=== PATIENT | female | born 1965 | race Caucasian/White ===

== ENCOUNTER 2019-09-24 14:23 | Emergency (ER) | payer OTHER ==
[~2019-09-24] VITALS: Ht 149.9 cm; Wt 68.0 kg
[2019-09-24] MEDS ORDERED: ONDANSETRON 4 MG/2 ML VIAL ONE ×2 (14:40→17:22)
[2019-09-24] MEDS ORDERED: MORPHINE SULFATE 4 MG/1 ML DISP.SYRIN ONE ×2 (14:40→17:22)
[2019-09-24] MEDS ORDERED: MORPHINE SULFATE 2 MG/1 ML DISP.SYRIN IV ONE (14:45)
[2019-09-24] MEDS ORDERED: ONDANSETRON 4 MG/2 ML VIAL IV ONE ×2 (14:45→17:30)
[2019-09-24 14:57] LABS: BASOPHILS % (AUTO) 0.3 % (0.0-2.0); EOSINOPHILS # (AUTO) 0.1 K/uL (0.0-0.7); EOSINOPHILS % (AUTO) 0.9 % (0.0-7.0); HEMATOCRIT 37.1 % (31.2-41.9); HEMOGLOBIN 12.7 g/dL (10.9-14.3); LYMPHOCYTES # (AUTO) 3.2 K/uL (20.0-40.0); LYMPHOCYTES % (AUTO) 33.2 % (20.5-51.5); MEAN CORPUSCULAR HEMOGLOBIN 33.4 uug (24.7-32.8); MEAN CORPUSCULAR HGB CONC 34 g/dL (32.3-35.6); MEAN CORPUSCULAR VOLUME 97.5 fL (75.5-95.3); MONOCYTES # (AUTO) 0.5 K/uL (2.0-10.0); MONOCYTES % (AUTO) 4.7 % (0.0-11.0); NEUTROPHILS # (AUTO) 5.9 K/uL (1.8-8.9); NEUTROPHILS % (AUTO) 60.9 % (38.5-71.5); PLATELET COUNT (AUTO) 213 K/uL (179-408); RED BLOOD CELL COUNT(AUTO) 3.81 MIL/uL (3.63-4.92); WHITE BLOOD COUNT (AUTO) 9.8 K/uL (3.8-11.8)
[2019-09-24 15:03] LABS: CREATININE 0.9 mg/dL (0.6-1.3); POTASSIUM 3.9 mmol/L (3.5-5.1)
[2019-09-24 15:10] LABS: BILIRUBIN,DIRECT 0.1 mg/dL (0.0-0.2); BILIRUBIN,TOTAL 0.3 mg/dL (0.2-1.0); TOTAL PROTEIN, SERUM 7.2 g/dL (6.4-8.2)
[2019-09-24] MEDS ORDERED: IV NORMAL SALINE 250 ML IV ONE (15:37)
[2019-09-24] MEDS ORDERED: IOHEXOL 300MG/ML 100 ML INFUS..BTL ONE (15:37)
[2019-09-24] MEDS ORDERED: SWABABLE VALVE TRANSFER SET EA MC ONE (15:37)
--- NOTE | 2019-09-24 16:17 | NUR ---
dr. fuller talking to dr. liliana moses regarding surgical consult.
--- NOTE | 2019-09-24 16:18 | NUR ---
pt back from ct. pt breathing normally, no sob.family members at bedside.
--- NOTE | 2019-09-24 16:19 | NUR ---
dr. fuller talking to [facility] regarding transfer of the pt.
--- NOTE | 2019-09-24 16:51 | NUR ---
called dr. rubi for thoracic surgory consult, krissy calvo stone hand.
--- NOTE | 2019-09-24 16:58 | NUR ---
DR. GANN TALKED TO DR. ENGEL FOR THORACIC CONSULT.
--- NOTE | 2019-09-24 16:59 | NUR ---
THE REQUESTED INFO FAXED TO [facility] [phone], PER REQUEST.
--- NOTE | 2019-09-24 17:05 | NUR ---
DR. GANN TALKING TO [facility].
--- NOTE | 2019-09-24 17:08 | NUR ---
PER DR. GANN, CHARGE NURSE AT [facility] ACCEPTED THE PT.
--- NOTE | 2019-09-24 17:13 | NUR ---
CALLED [facility] FOR ACLS TRANSFER TO [place], [address], TRIP NUMBER [phone]
[2019-09-24] MEDS ORDERED: IV NS 1000 ML 1,000 ML IV ONE (17:15)
[2019-09-24] MEDS ORDERED: MORPHINE SULFATE 4 MG/1 ML DISP.SYRIN IV ONE (17:30)
--- NOTE | 2019-09-24 19:12 | NUR ---
HANDS OFF REPORT GIVEN TO THAO KAY RN
--- NOTE | 2019-09-24 20:23 | NUR ---
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 VSS. REPORT GIVEN. PATIENT IS NO ACUTE DISTRESS.
== END 2019-09-24 20:29 | disposition short-term general hospital (02) ==
LOC: ER 14:23
DX: J94.2 Hemothorax (principal); R10.11 Right upper quadrant pain; Z98.890 Other specified postprocedural states
CPT/HCPCS: 36415; 71045; 74177; 80048; 80076; 84702; 85025; 93005; 96374 ×2; 96375; 99291; J2270 ×2; J2405 ×2; Q9967; A4663; J7030; J7050